=== PATIENT | male | born 1965 ===

== ENCOUNTER 2016-04-20 06:31 | Emergency (ER) | payer MEDICAID ==
[~2016-04-20] VITALS: Ht 170.2 cm; Wt 91.8 kg
[~2016-04-20 06:31] MED LIST: LISI10TA2 PO; LOSA100T29 PO; MELO-259 PO; METF500T4 PO; OMEP-113 PO
[2016-04-20 06:44] VITALS: BP 100/62; PULSE 90; RESP 18; O2SAT 99
--- NOTE | 2016-04-20 06:48 | ED.REPORT ---
HPI-Abd Pain F 40 and Over Date of Service Apr 20, 2016 ED Provider: Antoine Verma MD A 50 year old male with a history of diabetes and HTN presents to the ED via EMS complaining of diffuse abdominal pain. The pain is more concentrated on the left side. He woke up from sleep at 0230, had an episode of diarrhea and took Pepto Bismol with no relief. An hour later he started vomiting and then experienced severe abdominal pain. The pt reports having a recently resolved cold. He has had arthroscopic knee surgery but denies any history of abdominal surgery. The pt has not consumed alcohol in a month. Nursing Notes Stated Complaint: ABDOMINAL PAIN/VOMITING/DIARRHEA Chief Complaint: Male Abdominal Pain Nursing Notes Reviewed: Yes Allergies: Coded Allergies: lisinopril (Verified Allergy, Mild, Cough, 04/20/16) Scheduled Lisinopril (Lisinopril) 10 Mg Tablet 10 MG PO DAILY Meloxicam (Meloxicam) 7.5 Mg Tablet 7.5 MG PO DAILY Metformin (Metformin) 500 Mg Tablet 500 MG PO BIDWM Omeprazole Magnesium (Omeprazole) 20 Mg Capsule.dr 40 MG PO DAILY Scheduled PRN Ondansetron ODT (Zofran ODT) 4 Mg Tablet 4 MG PO Q4H PRN PRN For Nausea Miscellaneous Medications Losartan Potassium (Losartan Potassium) 100 Mg Tablet 100 MG PO General Time Seen by MD: 06:46 Chief Complaint Abdominal pain Hx Obtained From: Patient, EMS Arrived By: Ambulance Sudden in Onset?: Yes Onset Occurred: 5 - 8 hours ago Context of Onset: Sleeping Symptom Duration: Since onset Recent Healthcare: Recent doctor visit Similar Sx Previous: No Past Medical History Past Medical History Alcohol dependence PCP is at [facility] Reports: Diabetes mellitus, Hypertension Past Surgical History Arthroscopic knee surgery Denies any abdominal surgery Smoking History Former Smoker Social History reports no recent alcohol use Alcohol Use: >5 per day Drug Use: THC Ambulatory Status Independent Review of Systems Constitutional: Denies: Fever Respiratory: Denies: Non-productive cough Cardiovascular: Denies: Chest pain GI: Reports: Abdominal pain, Diarrhea, Nausea, Vomiting Musculoskeletal: Denies: Back pain Complete sys rev & neg: except as marked. Physical Exam Physical Exam Notes: Vital Signs Vital Signs (First) Date Time Temp Pulse Resp B/P Pulse Ox O2 Delivery O2 Flow Rate FiO2 04/20/16 06:44 36.4 90 18 100/62 99 Room Air Initial VS: Reviewed General/Constitutional: Awake, Alert, Well developed Distress / Hydration: Positive: Distress moderate Respiratory / Chest: Atraumatic, Breath sounds NL, Breath sounds = bilat, No respiratory distress, No rales, No rhonchi, No wheezing Cardiovascular: Heart rate NL, Regular rhythm, Heart sounds NL, No gallop, No murmurs, No rubs Abdomen: Atraumatic, Soft, BS normoactive Tenderness/Guarding/Rebound: Positive: Guarding voluntary Abdominal tenderness L>R. Back: Atraumatic, Full range of motion Head / Eyes: Atraumatic, Normocephalic, PERRL, EOMI ENT: Atraumatic, Airway patent, Mucous membranes moist, Pharynx NL Skin: Atraumatic, Color NL, No rash, Warm, Dry Neurologic: Oriented X3, No sensory deficits Upper Extremity / MS: Atraumatic, Full range of motion Lower Extremity / Pelvis / MS: Atraumatic, Full range of motion Psychiatric: Affect NL, Mood NL Interpretation & Diagnostics Lab Results Interpretation Result Diagram: 04/20/16 0640 04/20/16 0640 Test 04/20/16 06:40 04/20/16 08:06 04/20/16 08:57 White Blood Count 22.7th/mm3 (3.8-10.1) Red Blood Count 5.86mil/mm3 (4.40-5.80) Hemoglobin 18.3g/dL (13.8-17.2) Hematocrit 50.9% (41.0-50.0) Mean Corpuscular Volume 86.9fL (81-100) Mean Corpuscular Hemoglobin 31.2pg (27.0-35.0) Mean Corpuscular Hemoglobin Concent 36.0% (32.0-37.0) Red Cell Distribution Width 13.3% (12.3-15.4) Platelet Count 308bil/L (150-400) Neutrophils (%) (Auto) 79.3% (40-74) Lymphocytes (%) (Auto) 14.3% (14-46) Monocytes (%) (Auto) 4.2% (4-12) Eosinophils (%) (Auto) 1.6% (0-5) Basophils (%) (Auto) 0.2% (0-3) Sodium Level 138mEq/L (134-144) Potassium Level 3.8mEq/L (3.5-5.2) Chloride Level 96mEq/L (97-108) Carbon Dioxide Level 24mmol/L (18-29) Blood Urea Nitrogen 11mg/dL (6-24) Creatinine 1.15mg/dL (0.76-1.27) Estimat Glomerular Filtration Rate 72mL/min (>59) Glucose Level 213mg/dL (60-99) Calcium Level 10.2mg/dL (8.5-10.1) Magnesium Level 2.2mg/dL (1.6-2.6) Total Bilirubin 1.2mg/dL (0.0-1.2) Aspartate Amino Transf (AST/SGOT) 100U/L (0-50) Alanine Aminotransferase (ALT/SGPT) 124U/L (0-44) Alkaline Phosphatase 99U/L (25-150) Total Protein 9.1g/dL (6.4-8.4) Albumin 5.1g/dL (3.4-5.0) Lipase 95U/L (13-60) Urine Color Yellow (YELLOW) Urine Appearance Hazy (CLEAR,HAZY) Urine pH 6.0 (5.0-8.0) Urine Specific [place] 1.024 (1.003-1.035) Urine Protein 30mg/dL (NEG,TRACE) Urine Glucose (UA) Negativemg/dL (NEGATIVE) Urine Ketones Negativemg/dL (NEGATIVE) Urine Occult Blood Negative (NEGATIVE) Urine Nitrite Negative (NEGATIVE) Urine Bilirubin Negative (NEGATIVE) Urine Urobilinogen Normalmg/dL (NORMAL) Urine Leukocyte Esterase Negative (NEGATIVE) Urine RBC 0-2/hpf (0-2) Urine WBC 0-5/hpf (0-5) Urine Epithelial Cells Few/hpf (NONE-MOD) Urine Crystals Oxalic acid crystals (NONE Urine Bacteria None/hpf (NONE-FEW) Urine Hyaline Casts None/lpf (NONE) Urine Granular Casts Occasional (NONE SEEN) Urine Waxy Casts None seen (NONE SEEN) Urine Red Blood Cell Casts None seen (NONE SEEN) Urine White Blood Cell Casts None seen (NONE SEEN) Urine Mucus None seen (None Seen) Urine Trichomonas None seen (NONE SEEN) Urine Yeast None (NONE SEEN) Urinalysis Comment None Urine Culture Reflexed Not indicated Lactic Acid Level 1.5mmol/L (0.4-2.0) CT Abd / Pelvis Interpretation IMPRESSION: Source of left-sided abdominal pain is not found, no diverticulitis suspected. No free fluid throughout the abdomen or pelvis. Nonspecific bowel gas pattern. Dictated by: Prashant Araujo M.D. on 04/20/2016 at 8:19 Approved by: Prashant Araujo M.D. on 04/20/2016 at 8:21 Interpretation / Wet Read by: Interpret - Radiologist Re-Eval/Medical Decision Med Decision/Clinical Course Abd pain, N/V and D. Leukocytosis noted, exam reassuring and imaging does not suggest an emergent issue. Minimal elevation of lipase noted. Patient tolerating PO, at this point have considered panceratitis, colitis,cholecystitis ischemic bowel, among other possible diagnosis. None appear to be present. Pt appers stable for discharge, have advised to return if worse or if symptoms are persisting. Source of Hx: Old records Re-Evaluation/Progress #1: Time of Eval: 09:57 Re-Evaluation/Progress Note: Rechecked patient. Patient has minimal lower abdominal tenderness, no guarding, no rebound. Pt is tolerating PO. They have mild tachycardia. Explained to patient that CT appears normal. Re-Evaluation/Progress #2: Time of Eval: 10:41 Re-Evaluation/Progress Note: Rechecked patient. Explained that tylenol and prescrided meds can be given for pain. Follow up with the clinic on Friday. Return to ED warnings given for any new or worsening symptoms. The pt understands and agrees with the plan. All questions are addressed at this time. Counseled Regarding: Diagnosis, Lab results, Need for follow-up, When/why to return to ED Discharge & Departure Primary Impression: Generalized abdominal pain Disposition: Home Discharge Condition All VS Reviewed: Yes Condition: Stable Patient Instructions: Acute Abdominal Pain (ED) Additional Instructions: ED evaluation today included review, examination labs and CT of abdomen and pelvis. No serious cause for abdominal pain is identified. Treatment with nausea and pain medications as well as IV fluids was helpful. We advised clear liquid diet until feeling better. Tylenol 650 mg every 4 hours as needed for pain, do not take more than this. Ondansetron as needed for nausea and vomiting. Return emergency department immediately for increasing abdominal pain or uncontrolled vomiting. If still having symptoms tomorrow return emergency Department for reevaluation. I will be here tomorrow morning after 6 AM. Follow-up with primary care next week. Referrals: Renata Sterling MD (PCP) Christopher Attestation Portions of this note were transcribed by Kash Ta and Brooks Muñoz. I, Dr. Verma personally performed the history, physical exam and medical decision- making; I reviewed and confirmed the accuracy of the information in the transcribed note. Signed by: Kash Ta and Christopher Pinzon, 2016 and [id number]. copies to: Renata Sterling MD, Donald L MD Apr 20, 2016 06:48 Kash Ta Apr 20, 2016 06:53 BROOKS MUÑOZ Apr 20, 2016 10:32
[2016-04-20] MEDS ORDERED: 0.9% Sodium Chloride 1,000 ML IV ONE ×2 (06:54→10:00)
[2016-04-20] MEDS ORDERED: HYDROmorphone 1 mg/mL Inj IVPUSH PRN (06:55)
[2016-04-20] MEDS ORDERED: Ondansetron 2 mg/mL 2 mL Inj IVPUSH PRN (06:55)
[2016-04-20 07:18] LABS: Magnesium 2.2 mg/dL (1.6-2.6)
[2016-04-20 07:21] LABS: BASOPHILS % (AUTO) 0.2 % (0-3); EOSINOPHILS % (AUTO) 1.6 % (0-5); MONOCYTES % (AUTO) 4.2 % (4-12); Mean Corpuscular Hemoglobin 31.2 pg (27.0-35.0); Mean Corpuscular Volume 86.9 fL (81-100); NEUTROPHILS % (AUTO) 79.3 % (40-74); Platelet Count 308 bil/L (150-400)
[2016-04-20 08:17] VITALS: BP 116/65; PULSE 84; RESP 21; O2SAT 97
--- NOTE | 2016-04-20 08:22 | DRSVH ---
PROCEDURE: CT ABDOMEN AND PELVIS WITH CONTRAST ([id number]) INDICATIONS: abd pain L>R TECHNIQUE: After the administration of intravenous contrast, 5 mm thick sections acquired from the diaphragm to the symphysis. 5 mm coronal and sagittal reformats were acquired. For radiation dose reduction, the following was used: automated exposure control, adjustment of mA and/or kV according to patient siz e. COMPARISON: None. FINDINGS: Image quality: Excellent. ABDOMEN: Lung bases: Lung bases are clear. Heart size is normal. Solid organs: Liver and spleen are normal in size and enhancement. Gallbladder appears normal. Alex iary system is non dilated. Pancreas enhances normally. No adrenal nodules. Kidneys demonstrate no rmal size and enhancement, without hydronephrosis. 1.2 cm simple anterior left renal cortical cyst. Peritoneum and bowel: Bowel loops demonstrate normal wall thickness and caliber. No free fluid or a ir. Nodes and vessels: No retroperitoneal or mesenteric adenopathy by size criteria. Aorta and inferior vena cava are normal in size. Miscellaneous: No ventral hernias. PELVIS: Genitourinary: Bladder wall thickness is normal. Miscellaneous: No inguinal hernias or adenopathy. Bones: No suspicious bony lesions. No vertebral body compression fractures. IMPRESSION: Source of left-sided abdominal pain is not found, no diverticulitis suspected. No free f luid throughout the abdomen or pelvis. Nonspecific bowel gas pattern. Dictated by: Prashant Araujo M.D. on 04/20/2016 at 8:19 Approved by: Prashant Araujo M.D. on 04/20/2016 at 8:21
[2016-04-20 08:29] LABS: APPEARANCE,URINE HAZY (CLEAR,HAZY); COLOR,URINE YELLOW (YELLOW); OCCULT BLOOD,URINE NEGATIVE (NEGATIVE); UROBILINOGEN,URINE NORMAL (NORMAL)
[2016-04-20 10:11] VITALS: BP 118/64; PULSE 108; RESP 17; O2SAT 95
[2016-04-20 10:36] VITALS: BP 134/80; PULSE 95; RESP 14; O2SAT 97
[2016-04-20] MEDS ORDERED: ONDA4TAB9 PO (10:47)
[2016-04-20 10:59] VITALS: BP 134/80; PULSE 95; RESP 14; O2SAT 97
== END 2016-04-20 11:00 | disposition home or self-care (01) ==
LOC: EDSEX 06:31 → EDBD 06:31 → SED 07:11
DX: R10.84 Generalized abdominal pain (principal); R19.7 Diarrhea, unspecified; R11.10 Vomiting, unspecified; E11.9 Type 2 diabetes mellitus without complications; I10 Essential (primary) hypertension; Z87.891 Personal history of nicotine dependence; Z79.4 Long term (current) use of insulin; Z88.8 Allergy status to other drugs, medicaments and biological substances
CPT/HCPCS: 36415; 74177; 80053; 81000; 83605; 83690; 83735; 85025; 96361; 96374; 96375; 99285; J1170; J2405; J7030; Q9967